=== PATIENT | male | born 1995 | race Caucasian/White ===

== ENCOUNTER 2017-02-18 22:59 | Observation (INO) | payer BC, OTHER ==
[2017-02-18] MEDS ORDERED: ONDANSETRON HCL INJ/PF 4 MG/2 ML SDV IV ONE (23:52)
[2017-02-18] MEDS ORDERED: NORMAL SALINE 1000 ML 1,000 ML IV ONE (23:52)
[2017-02-19 00:13] LABS: ABSOLUTE LYMPHOCYTES (AUTO) 2.1 10^3/uL (0.5-4.7); ABSOLUTE MONOCYTES (AUTO) 0.8 10^3/uL (0.1-1.4); ABSOLUTE NEUT (AUTO) 10.4 10^3/uL (1.7-8.2); BASOPHILS % (AUTO) 0.2 % (0-2); EOSINOPHILS % (AUTO) 0.2 % (0-6); HEMATOCRIT 46.4 % (37.9-51.0); HEMOGLOBIN 16.4 g/dL (13.5-17.0); LYMPHOCYTES % (AUTO) 15.5 % (13-45); MEAN CORPUSCULAR HEMOGLOBIN 30.3 pg (27.0-33.4); MEAN CORPUSCULAR HGB CONC 35.4 g/dL (32.0-36.0); MEAN CORPUSCULAR VOLUME 86 fl (80-97); MONOCYTES % (AUTO) 6.2 % (3-13); PLATELET COUNT 135 10^3/uL (150-450); RED BLOOD COUNT 5.41 10^6/uL (4.35-5.55); RED CELL DISTRIBUTION WIDTH 13.1 % (11.5-14.0); SEGMENTED NEUTROPHILS % (AUTO) 77.9 % (42-78); TOTAL CELLS COUNTED % (AUTO) 100 %; WHITE BLOOD COUNT 13.4 10^3/uL (4.0-10.5)
--- NOTE | 2017-02-19 00:17 | ER Document Report ---
ED GI/ - General Mode of Arrival: Ambulatory Information source: Patient TRAVEL OUTSIDE OF THE [place] IN LAST 30 DAYS: No - HPI Patient complains to provider of: Abdominal pain Onset: This afternoon - 1600 Location: RLQ Associated symptoms: Other - see notes above <PRANAV ORTIZ - Last Filed: 02/19/17 01:33> <AIDENRANI VERONICA - Last Filed: 02/19/17 01:41> - General Chief Complaint: Abdominal Pain Stated Complaint: LOWER RIGHT ABDOMINAL PAIN Notes: 21 year old male with no prior medical history presents to the ED complaining of right lower quadrant abdominal pain that started at 1600 yesterday. Patient reports that he went to work at 1700 and was having difficulty walking secondary to pain. Patient denies any radiation of pain. Patient explains that his pain is 'excruciating' compared to what it is now. Patient has been having some pain relief since 1999 last night after eating. Patient additionally complains of nausea and constipation, but denies testicular pain, vomiting, diarrhea, cough, or congestion. (PRANAV ORTIZ) - Related Data Allergies/Adverse Reactions: Sulfa (Sulfonamide Antibiotics) Allergy (Verified 02/18/17 23:03) Past Medical History - General Information source: Patient - Social History Smoking Status: Unknown if Ever Smoked Family History: Reviewed & Not Pertinent - Medical History Medical History: Negative Surgical Hx: Negative <PRANAV ORTIZ - Last Filed: 02/19/17 01:33> Review of Systems - Review of Systems Constitutional: No symptoms reported EENT: No symptoms reported. denies: Nose congestion Cardiovascular: No symptoms reported Respiratory: No symptoms reported. denies: Cough Gastrointestinal: See HPI, Abdominal pain, Nausea, Constipation. denies: Diarrhea, Vomiting Genitourinary: No symptoms reported Male Genitourinary: No symptoms reported. denies: Testicular pain Musculoskeletal: No symptoms reported Skin: No symptoms reported Hematologic/Lymphatic: No symptoms reported Neurological/Psychological: No symptoms reported -: Yes All other systems reviewed and negative <PRANAV ORTIZ - Last Filed: 02/19/17 01:33> Physical Exam - General General appearance: Alert, Other - appears uncomfortable In distress: None - HEENT Head: Normocephalic, Atraumatic Eyes: Normal Extraocular movements intact: Yes Pupils: PERRL Mucous membranes: Dry - Respiratory Respiratory status: No respiratory distress Breath sounds: Normal - Cardiovascular Rhythm: Regular, Tachycardia Heart sounds: Normal auscultation - Abdominal Inspection: Normal Distension: No distension Tenderness: Tender - RLQ tenderness to palpation - Back Back: Normal - Extremities General upper extremity: Normal inspection, Normal ROM General lower extremity: Normal inspection, Normal ROM - Neurological Neuro grossly intact: Yes Cognition: Normal Orientation: AAOx4 [place] Coma Scale Eye Opening: Spontaneous [place] Coma Scale Verbal: Oriented [place] Coma Scale Motor: Obeys Commands [place] Coma Scale Total: 15 Speech: Normal - Psychological Associated symptoms: Normal affect, Normal mood - Skin Skin Temperature: Warm Skin Moisture: Dry Skin Color: Normal <PRANAV ORTIZ - Last Filed: 02/19/17 01:33> - Vital signs Vitals: Temp Pulse Resp BP Pulse Ox 98.7 F 115 H 20 118/76 97 02/18/17 23:04 02/18/17 23:04 02/18/17 23:04 02/18/17 23:04 02/18/17 23:04 Course - Laboratory Result Diagrams: 02/18/17 23:59 02/18/17 23:59 - Consults Dr. Ibarra Time consulted: 01:33 <PRANAV ORTIZ - Last Filed: 02/19/17 01:33> - Laboratory Result Diagrams: 02/18/17 23:59 02/18/17 23:59 <RANI WOFLE - Last Filed: 02/19/17 01:41> - Re-evaluation Re-evalutation: 02/19/17 01:38 Patient is a 21-year-old male who presents with right lower quadrant pain and nausea. Patient states he is actually feeling better when he came into the emergency department although he still having pain when he is walking. Patient has mild leukocytosis. CT is consistent with acute appendicitis. Spoke with Dr. Ibarra who will admit the patient. Recommends fluids, Zosyn, n.p.o. Patient is agreeable to this plan. Stable time of admission. (RANI WOLFE) - Vital Signs Vital signs: Temp Pulse Resp BP Pulse Ox 98.7 F 115 H 20 118/76 97 02/18/17 23:04 02/18/17 23:04 02/18/17 23:04 02/18/17 23:04 02/18/17 23:04 - Laboratory Laboratory results interpreted by me: 02/18/17 02/19/17 23:59 01:17 WBC 13.4 H Plt Count 135 L Absolute Neutrophils 10.4 H Urine Ketones 20 H Urine Urobilinogen 2.0 H - Consults Dr. Ibarra Reason for consultation: 02/19/17 01:[address] Ibarra regarding acute appendicitis diagnosis. Agrees to see the patient at bedside. (PRANAV ORTIZ) Critical Care Note - Critical Care Note Total time excluding time spent on procedures (mins): 15 - Evaluation and management of acute abdominal pain, tachycardia, multiple re-evaluations, coordination with surgeon, admission of patient, counseling of patient and family <RANI WOLFE - Last Filed: 02/19/17 01:41> Discharge <PRANAV ORTIZ - Last Filed: 02/19/17 01:33> - Discharge Admitting Provider: Surgicalist - [facility] Unit Admitted: Surgical Floor <RANI WOLFE - Last Filed: 02/19/17 01:41> - Discharge Clinical Impression: Acute appendicitis Qualifiers: Acute appendicitis type: with localized peritonitis Qualified Code(s): K35.3 - Acute appendicitis with localized peritonitis Condition: Stable Disposition: ADMITTED INPATIENT Scribe Attestation: 02/19/17 01:41 I personally performed the services described in the documentation, reviewed and edited the documentation which was dictated to the scribe in my presence, and it accurately records my words and actions. (RANI WOLFE) Scribe Documentation - Scribe Written by Bharatibe:: Radha Zaragoza, 02/19/2017 0017 acting as scribe for :: Aiden <PRANAV ORTIZ - Last Filed: 02/19/17 01:33>
[2017-02-19 01:06] LABS: ALANINE AMINOTRANSFERASE 35 U/L (21-72); ALKALINE PHOSPHATASE 60 U/L (38-126); ANION GAP 14 (5-19); ASPARTATE AMINO TRANSFERASE 21 U/L (17-59); BILIRUBIN,DIRECT 0.2 mg/dL (0.0-0.4); BILIRUBIN,TOTAL 1.1 mg/dL (0.2-1.3); BLOOD UREA NITROGEN 14 mg/dL (7-20); CARBON DIOXIDE 27 mmol/L (22-30); CHLORIDE 102 mmol/L (98-107); GLUCOSE 99 mg/dL (75-110); SODIUM 142.8 mmol/L (137-145); TOTAL PROTEIN 7.3 g/dL (6.3-8.2)
[2017-02-19 01:35] LABS: APPEARANCE,URINE CLEAR; BILIRUBIN,URINE NEGATIVE (NEGATIVE); COLOR,URINE YELLOW; GLUCOSE, URINE NEGATIVE (NEGATIVE); KETONES,URINE 20 mg/dL (NEGATIVE); LEUKOCYTE ESTERASE,URINE NEGATIVE (NEGATIVE); NITRITE,URINE NEGATIVE (NEGATIVE); PROTEIN,URINE NEGATIVE (NEGATIVE); URINE SPECIFIC GRAVITY 1.024
--- NOTE | 2017-02-19 01:36 | RADIOLOGY REPORT (SQ) ---
EXAM DESCRIPTION: CT ABD/PELVIS NO ORAL OR IV CLINICAL HISTORY: 21 years Male, RLQ pain, nausea COMPARISON: None. TECHNIQUE: No contrast. Coronal and sagittal reformat. This exam was performed according to our departmental dose-optimization program, which includes automated exposure control, adjustment of the mA and/or kV according to patient size and/or use of iterative reconstruction technique. FINDINGS: 0.9 cm diameter inflamed retrocecal appendix with small adjacent streaky fat. No significant free fluid. No abscess. No free air. Unenhanced inferior chest, intra-abdominal/intrapelvic structures, and musculoskeleton appear otherwise grossly intact. IMPRESSION: Acute appendicitis. Critical results reporting: The results of the examination have been personally discussed with the referring health care provider, RANI WOLFE, immediately following interpretation of the examination on 02/19/2017 12:32 AM SYSTEMS ENGINEER.
[2017-02-19] MEDS ORDERED: PIPERACILLIN/TAZOBACTAM 3.375 GM VIAL IV ONE ×2 (01:37→06:07)
[2017-02-19] MEDS ORDERED: NORMAL SALINE 1000 ML 1,000 ML IV ONE (01:37)
--- NOTE | 2017-02-19 03:01 | PDOC H&P ---
History of Present Illness Admission Date/PCP: 02/19/17 01:47 Patient complains of: abdominal pains History of Present Illness: URIAH THAKUR is a 21 year old male c/o vague abdominal pains yesterday at 2 pm. This gradually got worse asso with nausea and localized to RLQ. Had a CT scan compatible with acute appendicitis. Past Medical History Medical History: None Past Surgical History Past Surgical History: Reports: Orthopedic Surgery - left shoulder surgery tonsillectomy Social History Smoking Status: Current Every Day Smoker Cigarettes Packs Per Day: 0.1 Frequency of Alcohol Use: Rare Hx Recreational Drug Use: Yes Drugs: Marijuana - every day use - Advance Directive Resuscitation Status: Full Code Family History Family History: Reviewed & Not Pertinent Parental Family History Reviewed: Yes - father with hypertension Children Family History Reviewed: No Sibling(s) Family History Reviewed.: No Medication/Allergy Allergies/Adverse Reactions: Sulfa (Sulfonamide Antibiotics) Allergy (Verified 02/18/17 23:03) Review of Systems Constitutional: PRESENT: other - no fever/chills Eyes: PRESENT: other - no visual/hearing problems Nose, Mouth, and Throat: PRESENT: other - no sore throat Cardiovascular: PRESENT: other - no chest pains Respiratory: PRESENT: other - no cough Gastrointestinal: PRESENT: abdominal pain, nausea Genitourinary: PRESENT: other - no dysuria Musculoskeletal: PRESENT: other - no muscle weakness Integumentary: PRESENT: other - no rash Neurological: PRESENT: other - no seizures Psychiatric: PRESENT: other - no anxiety Endocrine: PRESENT: other - no polyuria Hematologic/Lymphatic: PRESENT: other - no easy bruisability Physical Exam Vital Signs: Temp Pulse Resp BP Pulse Ox 98.7 F 115 H 20 118/76 97 02/18/17 23:04 02/18/17 23:04 02/18/17 23:04 02/18/17 23:04 02/18/17 23:04 General appearance: PRESENT: no acute distress, mild distress Head exam: PRESENT: atraumatic Eye exam: PRESENT: conjunctiva pink Mouth exam: PRESENT: moist, tongue midline Respiratory exam: PRESENT: clear to auscultation sparkle Cardiovascular exam: PRESENT: RRR Pulses: PRESENT: normal radial pulses Vascular exam: PRESENT: normal capillary refill GI/Abdominal exam: PRESENT: soft, tenderness - RLQ Rectal exam: PRESENT: deferred Extremities exam: PRESENT: full ROM Musculoskeletal exam: PRESENT: ambulatory Neurological exam: PRESENT: alert, oriented to person, oriented to place, oriented to time, oriented to situation Psychiatric exam: PRESENT: appropriate affect Skin exam: PRESENT: normal color, warm Results Impressions: Abdomen/Pelvis CT 02/19/17 00:19 IMPRESSION: Acute appendicitis. Critical results reporting: The results of the examination have been personally discussed with the referring health care provider, RANI WOLFE, immediately following interpretation of the examination on 02/19/2017 12:32 AM STATE TESTED NURSING ASSISTANT. Assessment & Plan - Diagnosis (1) Acute appendicitis Qualifiers: Acute appendicitis type: with localized peritonitis Qualified Code(s): K35.3 - Acute appendicitis with localized peritonitis Is this a current diagnosis for this admission?: Yes - Time Time Spent: 30 to 50 Minutes - Inpatient Certification Based on my medical assessment, after consideration of the patient's comorbidities, presenting symptoms, or acuity I expect that the services needed warrant INPATIENT care.: No I certify that my determination is in accordance with my understanding of Medicare's requirements for reasonable and necessary INPATIENT services [42 CFR 412.3e].: Yes Medical Necessity: Need for IV Antibiotics, Need for Surgery - Plan Summary Plan Summary: Start IV antibiotics Hydrate For appendectomy this am
[2017-02-19] MEDS ORDERED: GLUCAGON,HUMAN RECOMB 1 MG INJ SUBCUT PRN (04:00)
[2017-02-19] MEDS ORDERED: DEXTROSE 40% GEL 15 GM TUBE PO PRN ×2 (04:00)
[2017-02-19] MEDS ORDERED: DEXTROSE 50%-WATER 25 GM/50 ML DISP.SYRIN IV PRN ×2 (04:00)
[2017-02-19] MEDS ORDERED: NORMAL SALINE 1000 ML 1,000 ML IV PRN (04:32)
[2017-02-19] MEDS ORDERED: PIPERACILLIN/TAZOBACTAM 3.375 GM VIAL IV PRN (04:35)
[2017-02-19] MEDS ORDERED: ONDANSETRON HCL INJ/PF 4 MG/2 ML SDV IV PRN (04:36)
[2017-02-19] MEDS ORDERED: MORPHINE SULFATE 10 MG/ML INJ IV PRN ×2 (04:36→09:28)
[2017-02-19] MEDS: PIPERACILLIN SODIUM/TAZOBACTAM 3.375 GM in NORMAL SALINE 100 ML IV SCH ×2 (06:26→11:20)
[2017-02-19] MEDS ORDERED: BUPIVACAINE HCL 0.25 % INJ/PF (2.5 MG/1 ML) 30 ML VIAL ONE (07:28)
[2017-02-19] MEDS ORDERED: FENTANYL CITRATE INJ/PF 100 MCG/2 ML AMPUL ONE (07:41)
[2017-02-19] MEDS ORDERED: MIDAZOLAM 2 MG/2 ML INJ ONE (07:42)
[2017-02-19] MEDS ORDERED: PROPOFOL INJ 200 MG/20 ML VIAL IV ONE (07:42)
[2017-02-19] MEDS ORDERED: ACETAMINOPHEN 100 ML IV ONE (07:42)
[2017-02-19] MEDS ORDERED: HYDROMORPHONE HCL INJ/PF 2 MG/ML AMPULE ONE (07:43)
[2017-02-19] MEDS ORDERED: ONDANSETRON HCL INJ/PF 4 MG/2 ML SDV ONE (07:57)
[2017-02-19] MEDS ORDERED: LIDOCAINE 2% INJ-PF (20 MG/ML) 2 ML AMPUL ONE (07:57)
[2017-02-19] MEDS ORDERED: PHENYLEPHRINE HCL INJ/PF 10 MG/1 ML SDV ONE (07:57)
[2017-02-19] MEDS ORDERED: DEXAMETHASONE SOD PHOSPHATE INJ 4 MG/1 ML VIAL ONE (07:57)
[2017-02-19] MEDS ORDERED: SUCCINYLCHOLINE CHLORIDE INJ 200 MG/10 ML VIAL ONE (07:57)
[2017-02-19] MEDS ORDERED: GLYCOPYRROLATE INJ 0.4 MG/2 ML VIAL ONE (07:57)
[2017-02-19] MEDS ORDERED: VECURONIUM BROMIDE INJ 10 MG VIAL IV ONE (07:57)
[2017-02-19] MEDS ORDERED: NEOSTIGMINE METHYLSULFATE 10 MG/10 ML VIAL ONE (07:57)
[2017-02-19] MEDS ORDERED: PROMETHAZINE HCL INJ 25 MG/1 ML VIAL IV PRN (09:09)
[2017-02-19] MEDS ORDERED: FENTANYL CITRATE INJ/PF 100 MCG/2 ML AMPUL IV PRN ×3 (09:09)
[2017-02-19] MEDS ORDERED: DIPHENHYDRAMINE HCL 50 MG/ML VIAL IV PRN (09:09)
[2017-02-19] MEDS ORDERED: KETOROLAC TROMETHAMINE 10 MG TABLET PO PRN (09:28)
--- NOTE | 2017-02-19 09:28 | Operative Report ---
Operative Report DATE OF SURGERY: 02/19/17 PREOPERATIVE DIAGNOSIS: Acute appendicitis POSTOPERATIVE DIAGNOSIS: Same OPERATION: Laparoscopic appendectomy SURGEON: SHERICE WALTER ANESTHESIA: GA TISSUE REMOVED OR ALTERED: 1 appendix COMPLICATIONS: None ESTIMATED BLOOD LOSS: Scant INTRAOPERATIVE FINDINGS: See below PROCEDURE: The patient was seen in the preop holding area where discussion was held with the patient and his mother regarding the preoperative diagnosis of acute appendicitis, and the operative plan including laparoscopic , possible open appendectomy. The mechanics of the operation as well as a discussion of the risks benefits and alternatives were presented. They expressed understanding and agree to proceed. Summary of procedure the patient was taken from the preop holding area to the main operating room where general anesthesia was induced. The patient had voided prior to coming to the operating room. The abdomen was exposed, prepped and draped with Betadine. Instrumentation set up for laparoscopic appendectomy. Surgical plan surgical timeout were conducted Skin was anesthetized for 3 port appendectomy; a supraumbilical vertical incision was made with a knife Veress needle inserted the peritoneal cavity pneumoperitoneum was established. Veress needle was removed, 5 mm ports established 5 mm flexible scope was inserted into peritoneal cavity. Was no evidence of vascular or visceral injury. Under direct visualization 2 additional ports were placed one 12 mm in the left lower quadrant and a second 5 mm in the suprapubic area Findings were significant for a enlarged, acutely inflamed appendix without rupture. The minimal amount of seropurulent drainage in the pelvis. The appendix was lying parallel to the ascending colon, but not retrocecal. Levator the appendix into the free peritoneal space, took down the lateral peritoneal reflection thereby the appendix. We visualized the relevant anatomy including the cecum, and the terminal ileum. Photographs were taken. We now brought onto the field 45 mm, blue load and fired it across the base the appendix and the mesial appendix thereby effectively amputating the appendix at its origination. Appendix was placed into an Endobag and brought out of the patient to the left lower quadrant port site. The specimen was passed to pathology We returned to the peritoneal cavity checked for bleeding and there was none. Staple line over the appendiceal stump was in excellent shape, and was photographed. Pelvis was aspirated of the residual seropurulent fluid. There was no evidence of peritonitis however. We felt the operation was complete. Sponge and needle counts are correct. All ports removed under direct visualization. Wounds closed with 0 Vicryl 3-0 Vicryl benzoin Steri-Strips. Patient tolerated procedure well, intubated and taken recovery in stable condition.
[2017-02-19 14:10] VITALS: BP 114/58
--- NOTE | 2017-02-21 11:16 | PDOC DISCHARGE SUMMARY ---
Discharge Summary (SDC) - Discharge Final Diagnosis: Acute appendicitis Date of Surgery: 02/19/17 Discharge Date: 02/21/17 Condition: Good Forms: Discharge POC-Adult Treatment or Instructions: No heavy lifting; advance diet as tolerated; in 48 hours; return to clinic, [facility], in 1-2 weeks. Description for Toradol on chart. Referrals: SHERICE WALTER MD [ACTIVE STAFF] - 03/01/17 10:30 am (follow up at [facility] 03/01/2017) Discharge Diet: As Tolerated Respiratory Treatments at Home: Deep Breathing/Coughing Discharge Activity: Balance Activity w/Rest, No Lifting Over 10 Pounds, No Lifting/Push/Pulling Home Care Assistance: None Needed Report the Following to Your Physician Immediately: Shortness of Breath, Nausea , Vomiting, Fever over 101 Degrees, Drainage-Foul Smelling
--- NOTE | 2017-02-21 11:59 | DISCHARGE SUMMARY E ---
Discharge Summary NAME: URIAH THAKUR : 1995 AGE: 21Y ADMITTED: 02/19/2017 DISCHARGED: 02/19/2017 SUMMARY OF HOSPITALIZATION: Patient is a 21-year-old male with a history of acute onset abdominal pain and nausea. He was seen in the Emergency Department at [facility] where he was found by CT scan of the abdomen and pelvis to have findings consistent with acute appendicitis. Patient was taken to the operating room by Dr. Escalante later than day and underwent laparoscopic appendectomy. He tolerated the procedure well without complication. Final pathology report revealed acute appendicitis with serositis. Postoperatively he had no complications. Diet was advanced and he tolerated this well. FINAL DIAGNOSIS: Acute appendicitis, status post laparoscopic appendectomy by Dr. Escalante. DISPOSITION: Patient will be discharged home in care of family. Followup with Dr. Escalante in approximately 1 week at [facility]. Take Toradol p.r.n. pain. Prescription provided. DICTATING PHYSICIAN: SHERICE ESCALANTE M.D. [id number] PHY#: [id number] ID: [id number] JOB#: [id number] ACCT: [id number] cc:[facility], MD Arvind ESCALANTE, SHERICE NUNEZ, E. R. >
== END 2017-02-19 14:40 | disposition home or self-care (01) ==
LOC: ER 22:59 → EH 02-19 01:47 → INTOOBSV 02-19 01:47 → 2N 02-19 03:35
PROVIDERS: ATTEND Surgery
PROC: 0DTJ4ZZ Resection of Appendix, Percutaneous Endoscopic Approach (ICD-10-PCS; principal; 2017-02-19 08:30)
DX: K35.3 Acute appendicitis with localized peritonitis (principal); F17.210 Nicotine dependence, cigarettes, uncomplicated
CPT/HCPCS: 36415; 74176; 80053; 81001; 840; 85025; 88304; 96361; 96374; 99285; G0378; J0131; J0330; J1100; J1170; J2250; J2370; J2405; J2543; J2704; J3010; J3490; J7030